=== PATIENT | male | born 1995 | race Two or more races ===

== ENCOUNTER 2024-12-17 10:59 | Emergency (ER) | payer OTHER ==
[~2024-12-17] VITALS: Ht 188 cm; Wt 136.1 kg
[2024-12-17 13:48] LABS: HEMATOCRIT 38.9 % (39.0-48.0); HEMOGLOBIN 13.5 g/dL (13-16.00); MEAN CELL VOLUME 88.4 fL (80.0-100.00); MEAN CORPUSCULAR HEMOGLOBIN 30.6 pg (27.00-32.0); MEAN CORPUSCULAR HGB CONC 34.6 g/dl (32.0-36.0); PLATELET COUNT 252 K/uL (150-450); RED CELL DISTRIBUTION WIDTH 12.9 % (11.5-14.5)
[2024-12-17] MEDS ORDERED: OSEL75CA PO (15:18)
== END 2024-12-17 15:45 | disposition home or self-care (01) ==
LOC: ER 11:02
PROVIDERS: Emergency Medicine
DX: J10.1 Influenza due to other identified influenza virus with other respiratory manifestations (principal); R50.9 Fever, unspecified; Z20.822 Contact with and (suspected) exposure to COVID-19